=== PATIENT | male | born 1945 | race Two or more races ===

== ENCOUNTER 2017-09-07 10:58 | Emergency (ER) | payer SELFPAY ==
[~2017-09-07] VITALS: Ht 149.9 cm; Wt 62.4 kg
[2017-09-07 11:05] VITALS: Ht 149.9 cm; Wt 62.4 kg
[2017-09-07] MEDS ORDERED: METH750T93 PO (12:39)
[2017-09-07] MEDS ORDERED: HYDR-902 PO (12:39)
[2017-09-07] MEDS ORDERED: IBUP800T25 PO (12:39)
--- NOTE | 2017-09-07 12:41 | ERD ---
ER Documentation Chief Complaint Chief Complaint LEFT ARM PAIN TAHT RADIATES TO THE NECK HPI This is a 71-year-old male complains of 3 days of pain that radiates from the back of the left neck down the shoulder to his left hand for carrying heavy plates and trays. The patient states he works in the [employer] business is always carrying trays with his left hand above his head and setting up and breaking down boxes and tables. The pain is a burning sensation is worse at night. No numbness or weakness no chest pain shortness of breath palpitations or diaphoresis ROS All systems reviewed and are negative except as per history of present illness. Medications Home Meds Active Scripts Ibuprofen* (Motrin*) 800 Mg Tab, 800 MG PO Q6H Y for PAIN AND OR ELEVATED TEMP, #30 TAB Prov:DHARMESH DAIGLE. DO 09/07/17 Methocarbamol* (Robaxin*) 750 Mg Tablet, 750 MG PO TID, #20 TAB Prov:DHARMESH DAIGLE DO 09/07/17 Hydrocodone/Acetaminophen ([place] 10-325 Tablet) 1 Each Tablet, 1 TAB PO Q6H Y for PAIN, #20 TAB Prov:DHARMESH DAIGLE DO 09/07/17 PMhx/Soc History of Surgery: No Anesthesia Reaction: No Hx Neurological Disorder: No Hx Respiratory Disorders: No Hx Cardiac Disorders: No Hx Psychiatric Problems: No Hx Miscellaneous Medical Probl: No Hx Alcohol Use: No Hx Substance Use: No Hx Tobacco Use: No FmHx Family History: No coronary disease Physical Exam Vitals Vital Signs Date Time Temp Pulse Resp B/P Pulse Ox O2 Delivery O2 Flow Rate FiO2 09/07/17 11:05 98.0 72 18 154/90 98 Physical Exam Const: Well-developed, well-nourished Head: Atraumatic, normocephalic Eyes: Normal Conjunctiva, PERRLA, EOMI, normal sclera, no nystagmus ENT: Normal External Ears, Nose and Mouth, moist mucus membranes. Neck: Full range of motion. No meningismus, no lymphadenopathy, left paraspinal neck muscles and trapezius with spasm and tenderness. Resp: Clear to auscultation bilaterally, no wheezing, rhonchi, rales Cardio: Regular rate and rhythm, no murmurs, S1 S2 present Abd: Soft, non tender x 4, non distended. Normal bowel sounds, no guarding or rebound, no pulsitile abdominal masses or bruits Skin: No petechiae or rashes, no ecchymosis , no maculopapular rash Back: No midline or flank tenderness Ext: No cyanosis, or edema, FROM x 4, normal inspection, neurovascularly intact x 4 Neur: Awake and alert, STR 5/5 x 4, sensation intact x 4, no focal findings, cerebellum intact Psych: Normal Mood and Affect Procedures/MDM Patient's pain is not cardiac and is clearly musculoskeletal/pinched nerve issue with the neck or cervical chain nerve roots. The pain runs from the back of the neck down the left arm is worse at night consistent with nerve pain the pain is also burning. Patient has a repetitive work related issue here. Instructed him to rest and will treat accordingly Departure Diagnosis: Primary Impression: Cervical radiculopathy Condition: Stable Patient Instructions: Radiculopathy, Cervical DHARMESH DAIGLE DO Sep 07, 2017 12:41
== END 2017-09-07 13:15 | disposition home or self-care (01) ==
LOC: FTE 10:58
DX: M54.12 Radiculopathy, cervical region (principal)
CPT/HCPCS: 99284

== ENCOUNTER 2018-04-17 18:10 | Emergency (ER) | END 2018-04-17 21:07 | disposition home or self-care (01) ==